=== PATIENT | female | born 1945 | race Caucasian/White ===

== ENCOUNTER 2022-11-01 05:34 | Inpatient (IN) | payer MEDICARE, BC ==
[2022-10-27 12:06] LABS: CLARITY,URINE CLEAR (Clear); COLOR,URINE YELLOW (Yellow); GLUCOSE, URINE NEGATIVE (Neg); KETONES,URINE TRACE mg/dl (Neg); LEUKOCYTE ESTERASE ,URINE TRACE (Neg); NITRITES, URINE NEGATIVE (Neg); OCCULT BLOOD,URINE TRACE-INTACT (Neg); PH,URINE 5.5 (4.8-8.0); PROTEIN,URINE NEGATIVE (Neg); UROBILINOGEN,URINE 0.2 E.U/dL (0.2-1.0)
[2022-10-27 12:18] LABS: UA COLLECTION TYPE CLN CATCH MIDSTREAM
[2022-10-27 12:21] LABS: URIC ACID CRYSTALS 2+ /HPF (NEGATIVE)
[2022-10-27 12:22] LABS: BACTERIA,URINE 1+ /HPF (Neg); MUCUS STRANDS FEW /LPF (Neg); RBC,URINE NONE SEEN /HPF (0-2); SQUAMOUS EPITHELIAL CELL,UR FEW /LPF (FEW); WBC,URINE 0-4 /HPF (0-4)
[2022-10-27 12:35] LABS: ALBUMIN 3.8 G/DL (3.4-5.0); ALBUMIN/GLOBULIN RATIO 1.3 (1.1-1.5); BLOOD UREA NITROGEN 27 MG/DL (7-18); CHLORIDE 108 MMOL/L (99-107); PRE OP ALT 28 U/L (30-65); PRE OP ANION GAP 9 (8-16); PRE OP AST 22 U/L (10-37); PRE OP GLUCOSE 96 MG/DL (70-104); PRE OP POTASSIUM 4.1 MMOL/L (3.4-5.1); PRE OP SODIUM 142 MMOL/L (135-145); TOTAL CARBON DIOXIDE 24.6 MMOL/L (24-32); TOTAL PROTEIN 6.8 G/DL (6.4-8.2); eGFR 54 ML/MIN
[2022-10-27 12:37] LABS: ALKALINE PHOSPHATASE 60 IU/L (46-116); PRE OP BILIRUB, TOTAL 1.1 MG/DL (0.0-1.0)
[2022-11-01] VITALS (23 sets, daily range): BP systolic 107–162; BP diastolic 52–81
[~2022-11-01] VITALS: Ht 160 cm; Wt 76.0 kg
[~2022-11-01 05:34] MED LIST: AMLO2.5T2 PO; ATOR20TA PO; OLME20TA23 PO; PANT20TA2 PO; cefazolin 2gm/D5W 100mL 100 ML IV ONE; famotidine 20mg tablet PO ONE; ringers solution, lacted 1,000 ML IV SCH; tranexamic acid 650mg tablet PO ONE; vancomycin 1,500 MG in NS 300ml IV soln IV ONE
--- NOTE | 2022-11-01 08:30 | NUR ---
CMS NOTE: PT STATES SHE SHOWERED X5 WITH HIBICLENS, USED MUPIROCIN OINTMENT X5 DAYS. PT HAS PALPABLE BILAT RADIAL PULSES. PT EDUCATED ON USE OF IS WITH RETURN DEMONSTRATION PERFORMED. PT READ BOOKLET.
[2022-11-01] MEDS ORDERED: aprepitant 40mg capsule PO ONE (08:54)
[2022-11-01] MEDS ORDERED: ketorolac trometh. 30mg/ml inj. ONE (08:54)
[2022-11-01] MEDS ORDERED: ROPIVAcaine 0.5% (5mg/ml) 30ml vial ONE (08:54)
[2022-11-01] MEDS ORDERED: desflurane 240ml liquid inh. IH ONE (08:55)
[2022-11-01] MEDS ORDERED: midazolam 1 mg/ML 2ml injection ONE (08:59)
[2022-11-01] MEDS ORDERED: fentaNYL/PF 50MCG/1 ML 2ML syringe ONE (08:59)
[2022-11-01] MEDS ORDERED: LIDOcaine 1%/PF 5ML 10 MG/ML VIAL ONE (09:00)
[2022-11-01] MEDS ORDERED: propofol inj 20 ML IV ONE (09:00)
[2022-11-01] MEDS ORDERED: ROPIVAcaine 0.5% (5mg/ml) 30ml vial IJ ONE (09:53)
[2022-11-01] MEDS ORDERED: morphine 4 MG/ML inj SYRINge IV PRN (10:15)
[2022-11-01] MEDS ORDERED: morphine 2 MG/ML inj. syringe IV PRN (10:15)
[2022-11-01] MEDS ORDERED: meperidine/PF 25mg/ml syringe IV PRN ×3 (10:15)
[2022-11-01] MEDS ORDERED: ondansetron/PF 4mg/2ml inj IV PRN ×2 (10:15→10:55)
[2022-11-01] MEDS ORDERED: proCHLORperazine 10 MG/2 ml inj IV PRN (10:15)
[2022-11-01] MEDS ORDERED: ROPIVAcaine 0.2% (10 MG/5 ML) BOLUS INJECTION INTERSCALE PRN (10:15)
[2022-11-01] MEDS ORDERED: ringers solution, lacted 1,000 ML IV SCH (10:15)
[2022-11-01] MEDS ORDERED: ROPIVAcaine 0.2%/PF PUMP/bolus 545 ML INTERSCALE SCH (10:15)
[2022-11-01] MEDS ORDERED: dexamethasone sod phosphate 4mg/ml inj. ONE (10:28)
[2022-11-01] MEDS ORDERED: ondansetron/PF 4mg/2ml inj ONE (10:28)
[2022-11-01] MEDS ORDERED: diphenhydrAMINE 25mg capsule PO PRN ×2 (10:55)
[2022-11-01] MEDS ORDERED: naloxone 0.4 mg/ml inj IV PRN (10:55)
[2022-11-01] MEDS ORDERED: magnesium hydroxide 30ml (MOM) UD suspension PO PRN (10:55)
[2022-11-01] MEDS ORDERED: HYDROcodone/acetaminophen 10/325mg tab PO PRN ×2 (10:55)
[2022-11-01] MEDS ORDERED: oxyCODONE IR 5mg (immed. release) tablet PO PRN (10:55)
[2022-11-01] MEDS ORDERED: HYDROmorphone 1 mg/ml syringe IV PRN (10:55)
[2022-11-01] MEDS ORDERED: bisacodyl 10mg suppository rectal RC PRN (10:55)
[2022-11-01] MEDS ORDERED: HYDROmorphone inj. 0.5 MG/0.5 ML DISP.SYRIN IV PRN (10:55)
[2022-11-01] MEDS ORDERED: pantoprazole 40mg Tablet.DR PO PRN (10:55)
[2022-11-01] MEDS ORDERED: acetaminophen 325mg tablet PO PRN (10:55)
--- NOTE | 2022-11-01 11:03 | NUR ---
Received from OR via BED, accompanied by Anesthesiologist DEMI and report given by Anesthesiolgist. PT REPSONDS TO VERBAL STIMULI; DENIES PAIN OR NAUSEA; SR; SLING TO L SHOULDER, ISLAND DRESSING CDI, ICE TO SHOULDER; IV 20 GUAGE TO R FA; SDI'S IN PLACE. Addendum: 11/01/22 at 1120 by Seth Bridges RN Amended: Links added.
--- NOTE | 2022-11-01 12:53 | NUR ---
PATIENT TAKEN TO ROOM 4024 Rosa PRIETO HAS PTS BELONGINGS. HOOKED UP TO MONITORS IN ROOM AND GIVEN CALL LIGHT, REPORT GIVEN TO TAVIA SANCHES WHO HAS TAKEN OVER PATIENT CARE. Addendum: 11/01/22 at 1300 by Seth Bridges RN Amended: Links added.
[2022-11-01] MEDS: potassium cl 20mEq in 1/2 NS 1,000 ML IV SCH ×2 (16:03→18:55)
[2022-11-01] MEDS: ceFAZolin/D5W- 1GM premix 50 ML IV SCH (16:05)
--- NOTE | 2022-11-01 18:40 | NUR ---
Patient in room [facility] 4024. I have received report from MARY SQUIRES and had the opportunity to ask questions and assume patient care.
[2022-11-01] MEDS ORDERED: vancomycin/NS 1 GM ADD-VANTAGE 250 ML IV SCH (20:00)
[2022-11-01] MEDS: oxyCODONE IR 5mg (immed. release) tablet PO PRN (20:34)
[2022-11-01] MEDS: losartan 50mg tablet PO SCH (20:35)
[2022-11-01] MEDS ORDERED: sennosides 8.6mg tablet PO SCH (21:00)
[2022-11-01] MEDS ORDERED: amLODIPine 2.5mg tablet PO SCH (21:00)
[2022-11-01] MEDS ORDERED: atorvastatin 20mg tablet PO SCH (21:00)
[2022-11-02] MEDS: ceFAZolin/D5W- 1GM premix 50 ML IV SCH (00:41)
[2022-11-02 02:00] VITALS: BP 120/45
[2022-11-02] MEDS: potassium cl 20mEq in 1/2 NS 1,000 ML IV SCH ×2 (04:53→10:55)
[2022-11-02] MEDS: oxyCODONE IR 5mg (immed. release) tablet PO PRN (05:51)
[2022-11-02 05:59] LABS: ANION GAP 11 (8-16); CHLORIDE 106 MMOL/L (99-107); POTASSIUM 4.4 MMOL/L (3.5-5.1); SODIUM 137 MMOL/L (135-145); TOTAL CARBON DIOXIDE 20.2 MMOL/L (24-32)
[2022-11-02 06:00] VITALS: BP 106/56
--- NOTE | 2022-11-02 06:07 | NUR ---
Problems reprioritized. Patient report given, questions answered & plan of care reviewed with CRIS SQUIRES.
[2022-11-02 06:08] LABS: BASOPHILS % (AUTO) 0 % (0-1); EOSINOPHILS % (AUTO) 0 % (0-6); HEMATOCRIT 36.3 % (35.0-45.0); LYMPHOCYTES # (AUTO) 0.7 X10'3 (1.1-4.8); MEAN CORPUSCULAR HEMOGLOBIN 29.9 PG (27.0-31.0); MEAN CORPUSCULAR HGB CONC 33.1 g/dL (33.0-36.5); MEAN CORPUSCULAR VOLUME 90.1 FL (78-98); MEAN PLATELET VOLUME 8.7 FL (7.4-10.4); MONOCYTES # (AUTO) 0.8 X10'3 (0-0.9); MONOCYTES % (AUTO) 4.6 % (2-12); NEUTROPHILS # (AUTO) 16.1 X10'3 (1.8-7.7); NEUTROPHILS % (AUTO) 91.4 % (42-75); PLATELET COUNT 283 X10'3 (140-440); RED BLOOD COUNT 4.03 X10'6 (4.20-5.60); RED CELL DISTRIBUTION WIDTH 13.7 % (11.5-14.5); WHITE BLOOD COUNT 17.6 X10'3 (4.5-11.0)
--- NOTE | 2022-11-02 06:41 | NUR ---
Patient in room [facility] 4024. I have received report from Gloria and had the opportunity to ask questions and assume patient care.
[2022-11-02] MEDS ORDERED: aspirin 325mg tablet PO SCH (08:30)
[2022-11-02] MEDS: losartan 50mg tablet PO SCH (08:47)
[2022-11-02 10:00] VITALS: BP 127/60
--- NOTE | 2022-11-02 11:07 | NUR ---
Joint surgery consult: Pt s/p L shoulder surgery this admit per EMR. Pt seen by ALYSSA for written/verbal high protein diet ed w/ RD contact information provided. ALYSSA encouraged pt to contact dietitian's office if further nutrition questions/concerns. Addendum: 11/02/22 at [address] Amended: Links added.
--- NOTE | 2022-11-02 13:18 | NUR ---
Reviewed discharge instructions with patient and her daughter who was at bedside. Patient verbalized understanding. Patient was able to dress herself with minimal assistance. Patient's belongings were collected, powder packs obtained from the freezer and patient was wheeled downstairs by staff to be driven home by her daughter.
[2022-11-02] MEDS ORDERED: celeCOXIB 100mg capsule PO SCH (20:00)
== END 2022-11-02 12:48 | disposition home or self-care (01) | DRG 483 ==
LOC: PAS IN 05:34 → ORTHO 4S 13:20
PROVIDERS: ADMIT Orthopaedic Surgery; ATTEND Orthopaedic Surgery
PROC: 0LS40ZZ Reposition Left Upper Arm Tendon, Open Approach (ICD-10-PCS; 2022-11-01)
PROC: 3E0T3BZ Introduction of Anesthetic Agent into Peripheral Nerves and Plexi, Percutaneous Approach (ICD-10-PCS; 2022-11-01)
PROC: 0RRK0JZ Replacement of Left Shoulder Joint with Synthetic Substitute, Open Approach (ICD-10-PCS; principal; 2022-11-01 08:55)
DX: M19.012 Primary osteoarthritis, left shoulder (principal); M65.9 Synovitis and tenosynovitis, unspecified; Z88.0 Allergy status to penicillin; Z88.2 Allergy status to sulfonamides
CPT/HCPCS: 36415; 80051; 80053; 81001; 82948; 85025; 87081; 87088; 97110; 97161; 97530; A4565; A4615; A4618; A7000; C1713; C1776; G0378; J0690; J1100; J1885; J2250; J2405; J2704; J2795; J3010; J3370; J3480; J3490; J7120; J8501